=== PATIENT | female | born 1985 | race American Indian/Alaskan Native ===

== ENCOUNTER 2018-01-16 06:05 | Day surgery (SDC) | payer OTHER ==
[2016-11-19 07:38] VITALS: BMI 27.4
[2018-01-16 07:15] LABS: HCG,QUALITATIVE URINE NEGATIVE (NEGATIVE)
[2018-01-16 07:22] LABS: BASO # 0.1 K/uL (0.0-0.2); BASO % 0.6 % (0.0-2.0); EOS # 0.5 K/uL (0.0-0.7); EOS % 5.7 % (0.0-4.0); HEMOGLOBIN 13.3 g/dL (11.0-16.0); LYMPH # 2.2 K/uL (1.0-4.3); LYMPH % 23.2 % (20.0-40.0); MEAN CELL VOLUME 94.1 fL (81.0-99.0); MEAN CORPUSCULAR HEMOGLOBIN 32.8 pg (27.0-31.0); MEAN CORPUSCULAR HGB CONC 34.8 g/dL (33.0-37.0); MEAN PLATELET VOLUME 8.4 fL (7.2-11.7); MONO # 0.9 K/uL (0.0-0.8); MONO % 8.9 % (0.0-10.0); NEUT # 5.9 K/uL (1.8-7.0); NEUT % 61.6 % (50.0-75.0); NRBC % 0.1 % (0.0-2.0); RBC 4.06 Mil/uL (3.80-5.20); RED CELL DISTRIBUTION WIDTH 12.8 % (11.5-14.5); WHITE BLOOD COUNT 9.6 K/uL (4.8-10.8)
[2018-01-16 07:26] LABS: SQUAMOUS EPITHIAL 1 /hpf (0-5); URINE BILIRUBIN NEGATIVE (NEGATIVE); URINE BLOOD 3+ (NEGATIVE); URINE CLARITY Clear (Clear); URINE COLOR Yellow (YELLOW); URINE GLUCOSE (UA) NORMAL (Normal); URINE LEUKOCYTE ESTERASE 1+ Leu/uL (Negative); URINE PROTEIN 1+ mg/dL (NEGATIVE); URINE UROBILINOGEN NORMAL mg/dL (0.2-1.0)
[2018-01-16 07:29] LABS: BLOOD UREA NITROGEN 13 mg/dL (7-17); CALCIUM 9.5 mg/dl (8.6-10.4); GFR AFRICAN-AMERICAN > 60; GFR NON-AFRICAN AMERICAN > 60
[2018-01-16] MEDS ORDERED: Propofol 10 mg/ml Inj (20 ML) ONE (08:05)
[2018-01-16] MEDS ORDERED: Midazolam 2 MG/2 ML VIAL ONE (08:05)
[2018-01-16] MEDS ORDERED: HYDROmorphone 0.5 mg/0.5 ml ISec IVP PRN (08:47)
[2018-01-16] MEDS ORDERED: HYDROmorphone 0.5 mg/0.5 ml ISec ONE (08:55)
--- NOTE | 2018-01-16 09:14 | PCM.SURG1 ---
Surgeon's Initial Post Op Note - Surgeon's Notes Surgeon: Heidi Pringle MD Cloth Picker: none Type of Anesthesia: General LMA Pre-Operative Diagnosis: Abnormla uterine bleeding, symopmtaic fibroids uterus, cervical stenosis Operative Findings: 10 week size uteurs, cervical stenosis, myoma type proection occlduign uteirne cacity, unable to visuzlize ostia Post-Operative Diagnosis: same as above Operation Performed: Hysteroscopic myomecotmy, diation adn currettage Specimen/Specimens Removed: endocerical curretting, endometrial currettings with protion of myoma Estimated Blood Loss: EBL {In ML}: 10 Blood Products Given: N/A Drains Used: No Drains Post-Op Condition: Good Date of Surgery/Procedure: 01/16/18 Time of Surgery/Procedure: 08:00
[2018-01-16] MEDS ORDERED: Lactated Ringer's 1,000 ML IV ONE (10:30)
[2018-01-16 11:04] VITALS: O2SAT 100
[2018-01-16 11:57] VITALS: BP 126/71; PULSE 97; RESP 20; TEMP 97.7
--- NOTE | 2018-01-16 21:32 | OP ---
PROCEDURE DATE: 01/16/2018 SURGEON: Heidi Pringle MD INDUSTRIAL CUSTODIAN: None. TYPE OF ANESTHESIA: General LMA. PREOPERATIVE DIAGNOSES: Abnormal uterine bleeding, symptomatic fibroid uterus, cervical stenosis. OPERATIVE FINDINGS: A 10-week size uterus, cervical stenosis, entire cavity, unable to visualize bilateral ostia. POSTOPERATIVE DIAGNOSES: Abnormal uterine bleeding, symptomatic fibroid uterus, cervical stenosis. OPERATION PERFORMED: Hysteroscopic myomectomy, dilation and curettage. SPECIMEN REMOVED: Endocervical curettings, endometrial curettings with portion of myoma. ESTIMATED BLOOD LOSS: 10 mL. BLOOD PRODUCTS: None. COMPLICATIONS: None. DESCRIPTION OF PROCEDURE: The patient was taken to the operating room, where she was given general anesthesia. Once found to be adequate, she was placed on the operating table in dorsal supine position with legs supported using stirrups. The patient was then prepped and draped in usual sterile fashion. A bimanual exam was performed. A Boo retractor was placed in the anterior and posterior fornix of the vagina. Cervix was adequately visualized. A single tooth tenaculum was placed in the anterior lip of the cervix. Cervix appeared stenotic. Endocervical curettings were obtained with a Kevorkian curette and sent to pathology on [facility]. Following this, the uterus was then sounded to 5 cm, and the cervix was sequentially dilated, resistance was noted. At that point, hysteroscope using normal saline, 5 mm, was inserted under direct visualization, and there was a mass noted to be occluding the entire cavity without full visualization, unable to distend and get adequate visualization. At that point, the hysteroscope was then removed, and curettage was done carefully with portion of myoma sent to pathology on [facility]. All instruments were removed with good hemostasis noted at the tenaculum puncture site. At the end of the procedure, all needle, sponge, and instrument counts were noted and correct x2. The patient tolerated the procedure well and was transferred to the recovery room in stable condition. Heidi Pringle MD
== END 2018-01-16 11:45 | disposition home or self-care (01) ==
LOC: C.SDS 06:05
PROVIDERS: ATTEND Obstetrics & Gynecology
DX: N88.2 Stricture and stenosis of cervix uteri (principal); N93.9 Abnormal uterine and vaginal bleeding, unspecified; N72 Inflammatory disease of cervix uteri; D25.9 Leiomyoma of uterus, unspecified
CPT/HCPCS: 36415; 58120; 58555; 80048; 81001; 84703; 85025; 88305; J1170; J2250; J2405; J2704; J3010; J7120